=== PATIENT | female | born 1990 | race Two or more races ===

== ENCOUNTER 2025-05-05 13:48 | Emergency (ER) | payer MEDICAID, OTHER ==
[~2025-05-05] VITALS: Ht 177.8 cm; Wt 74.0 kg
[2025-05-05 13:50] VITALS: TEMP 98.9
[2025-05-05 14:30] VITALS: BP 130/80; PULSE 66; RESP 18; O2SAT 100
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
[2025-05-05] MEDS: HYDROcodone-ACET 5/325MG TAB PO ONE (15:04)
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
--- NOTE | 2025-05-05 15:21 | DVH ---
EXAM: XY CHEST TWO VIEWS ROUTINE CLINICAL HISTORY: pain COMPARISON: None TECHNIQUE: Frontal and lateral view of the chest was obtained FINDINGS: Lines and Tubes: None Lungs: No focal consolidation. Pleura: No effusion. No pneumothorax. Cardiomediastinal contours: Unremarkable Bones: No acute osseous abnormality. IMPRESSION: No acute cardiopulmonary disease.
[2025-05-05] MEDS ORDERED: METH-1182 PO (15:39)
[2025-05-05] MEDS ORDERED: IBUP-1456 PO (15:39)
== END 2025-05-05 15:48 | disposition home or self-care (01) ==
LOC: ER 13:48
DX: S53.491A Other sprain of right elbow, initial encounter (principal); S20.212A Contusion of left front wall of thorax, initial encounter; S80.12XA Contusion of left lower leg, initial encounter; Z88.2 Allergy status to sulfonamides; V89.2XXA Person injured in unspecified motor-vehicle accident, traffic, initial encounter; Y93.I9 Activity, other involving external motion; Y92.488 Other paved roadways as the place of occurrence of the external cause; Y99.8 Other external cause status
CPT/HCPCS: 71046; 73070; 73590